=== PATIENT | male | born 1965 | race Caucasian/White ===

== ENCOUNTER 2017-02-18 11:46 | Emergency (ER) | payer SELFPAY ==
[2017-02-18] MEDS ORDERED: methylPREDNISolone 125 MG* 2 ML VIAL IV ONE (12:15)
[2017-02-18] MEDS ORDERED: Famotidine IV* 10 MG/ML 2 ML (20 mg) IV SLOW PU ONE (12:15)
[2017-02-18] MEDS ORDERED: diPHENhydraMINE IV* 50 MG/ML 1 ml VIAL (BENADRYL) IV ONE (12:16)
[2017-02-18] MEDS ORDERED: NS 0.9% 1000 ML* 2,000 ML IV ONE (12:18)
[2017-02-18 12:21] LABS: Hematocrit 49 % (42-52); Hemoglobin 16.4 g/dl (14.0-18.0); Mean Corpuscular HGB Conc 34 g/dl (31-36); Mean Corpuscular Hemoglobin 33 pg (27-31); Mean Corpuscular Volume 97 fL (80-94); Mean Platelet Volume 7 um3 (7.4-10.4); Red Blood Count 5.05 10^6/ul (4.0-5.4); Red Cell Distribution Width 14 % (10.5-15); White Blood Count 9.6 10^3/ul (3.5-10.8)
[2017-02-18 12:31] LABS: BUN/Creatinine Ratio 12.6 (8-20); C Reactive Protein 1.58 mg/L (< 5.00); Calcium 9.2 mg/dL (8.6-10.3); EGFR African American 107.5 (>60); EGFR Non-African American 83.6 (>60); Globulin 2.7 g/dL (2-4); Potassium 3.6 mmol/L (3.5-5.0); Total Bilirubin 0.6 mg/dL (0.2-1.0); Total Protein 6.7 g/dL (6.4-8.9)
[2017-02-18 14:49] VITALS: BP 126/72
--- NOTE | 2017-02-18 16:36 | ED ---
Doretha Epstein Thomas, scribed for Alonzo Moyer MD on 02/18/17 at 1214 . Allergic Reaction/Systemic - HPI Summary HPI Summary: The pt is a 52 y/o M presenting to the ED c/o allergic reaction s/p Yellowjacket sting to his external L ear today at 11:30. The insect flew into his ear and then out, but he denies any stings to his ear canal. He immediately applied an Epi-Pen after being stung. Before the Epi-Pen, he describes his breathing as erratic, but he denies any SOB in the ED. Three years ago, the patient had a severe allergic reaction after an insect sting. The pt additionally c/o diaphoresis, erythema (entire body), tingling sensation ( entire body), hives (most of body), frontal BEST, lip swelling (minor), and throat tightness. The pt denies tongue swelling and SOB. PMHx: previously healthy. PSHx: none. SHx: smoker, works in construction, rare alcohol use. - History of Current Complaint Chief Complaint: EDAllergicReaction Time Seen by Provider: 02/18/17 12:03 Hx Obtained From: Patient Onset/Duration: Sudden Onset, Started minutes ago - 11:30 today, Still Present Timing: Constant Pain Intensity: 1 Pain Scale Used: 0-10 Numeric Location: Diffuse Character: Hives Aggravating Factor(s): Nothing Alleviating Factor(s): Epinephrine - self-administered shortly after stin Associated Signs And Symptoms: Positive: Diaphoresis, Rash - hives over entire body, Throat Tightening, Other: - POS: erythema (entire body), frontal BEST, tingling sensation (entire body), lip swelling (minor); NEG: tongue swelling, SOB. Negative: Difficulty Breathing - Related Hx Possible Reaction To: Insect - yellowjacket Prior Episode Dx as Allergic Reaction to: Same/Other: severe reaction 3 years ago to insect bite - Allergies/Home Medications Allergies/Adverse Reactions: Allergies Allergy/AdvReac Type Severity Reaction Status Date / Time No Known Allergies Allergy Verified 02/18/17 12:25 PMH/Surg Hx/FS Hx/Imm Hx Previously Healthy: Yes Endocrine/Hematology History: Denies: Hx Diabetes Cardiovascular History: Denies: Hx Myocardial Infarction - Surgical History Surgery Procedure, Year, and Place: none Infectious Disease History: No Infectious Disease History: Denies: Traveled Outside the [place] in Last 30 Days - Family History Known Family History: Positive: Other - POS: CA (lung, spinal) - Social History Occupation: Employed Full-time - construction Alcohol Use: Rare Hx Tobacco Use: Yes Smoking Status (MU): Current Every Day Smoker Review of Systems Positive: Skin Diaphoresis Eyes: Negative ENT: Negative Cardiovascular: Negative Positive: Other - POS: throat tightness. Negative: Shortness Of Breath - none in the ED, but "erratic breathing" before application of Epi-Pen Gastrointestinal: Negative Genitourinary: Negative Positive: Other - POS: lip swelling (minor); NEG: tongue swelling Positive: Other - POS: erythema (entire body); hives (most of body) Neurological: Other - POS: tingling sensation (entire body) Positive: Headache - frontal Psychological: Normal All Other Systems Reviewed And Are Negative: Yes Physical Exam - Summary Physical Exam Summary: The patient is well-nourished in no acute distress and in no acute pain. The skin is warm and diaphoretic and skin color reflects adequate perfusion. He is covered in diffuse urticaria on his face, trunk, and extremities. HEENT: The head is normocephalic and atraumatic. The pupils are equal and reactive. There is periorbital edema. There is drainage from his eyes. His conjunctiva are injected. Nares are patent and without drainage. Mouth reveals moist mucous membranes and the throat is without erythema and exudate. The external ears are intact. The ear canals are patent and without drainage. The tympanic membranes are intact. There is no sinosis. There is no angioedema of the lips or tongue. Neck is supple with full range of motion and non-tender. There are no carotid bruits. There is no neck vein distension. There is no stridor. Respiratory: Chest is non-tender. He has occasional expiratory wheezing, but otherwise lungs are clear to auscultation and breath sounds are symmetrical and equal. He is no short of breath. Cardiovascular: Heart is regular rate and rhythm. There is no murmur or rub auscultated. There is no peripheral edema and pulses are symmetrical and equal. There is no pitting edema. Abdomen: The abdomen is soft and non-tender. Musculoskeletal: There is no back pain noted. There is good capillary refill. There is no peripheral edema or calf tenderness elicited. Neurological: Patient is alert and oriented to person, place and time. Psychiatric: The patient has an appropriate affect and does not exhibit any anxiety or depression. Triage Information Reviewed: Yes Vital Signs On Initial Exam: Initial Vitals BP 127/79 02/18/17 11:54 Vital Signs Reviewed: Yes Diagnostics - Vital Signs Vital Signs Temp Pulse Resp BP Pulse Ox 02/18/17 11:59 110 13 92 02/18/17 11:56 109 19 91 02/18/17 11:55 98.9 F 110 17 127/79 92 02/18/17 11:54 127/79 - Laboratory Lab Results: Lab Results 02/18/17 02/18/17 Range/Units 11:56 11:56 WBC 9.6 (3.5-10.8) 10^3/ul RBC 5.05 (4.0-5.4) 10^6/ul Hgb 16.4 (14.0-18.0) g/dl Hct 49 (42-52) % MCV 97 H (80-94) fL MCH 33 H (27-31) pg MCHC 34 (31-36) g/dl RDW 14 (10.5-15) % Plt Count 285 (150-450) 10^3/ul MPV 7 L (7.4-10.4) um3 Neut % (Auto) 54.9 (38-83) % Lymph % (Auto) 38.2 (25-47) % [place] % (Auto) 6.3 (1-9) % Eos % (Auto) 0.3 (0-6) % Baso % (Auto) 0.3 (0-2) % Absolute Neuts (auto) 5.3 (1.5-7.7) 10^3/ul Absolute Lymphs (auto) 3.6 (1.0-4.8) 10^3/ul Absolute Monos (auto) 0.6 (0-0.8) 10^3/ul Absolute Eos (auto) 0 (0-0.6) 10^3/ul Absolute Basos (auto) 0 (0-0.2) 10^3/ul Absolute Nucleated RBC 0.01 10^3/ul Nucleated RBC % 0.1 Sodium 138 (133-145) mmol/L Potassium 3.6 (3.5-5.0) mmol/L Chloride 104 (101-111) mmol/L Carbon Dioxide 26 (22-32) mmol/L Anion Gap 8 (2-11) mmol/L BUN 12 (6-24) mg/dL Creatinine 0.95 (0.67-1.17) mg/dL Est GFR ( Amer) 107.5 (>60) Est GFR (Non-Af Amer) 83.6 (>60) BUN/Creatinine Ratio 12.6 (8-20) Glucose 121 H (70-100) mg/dL Calcium 9.2 (8.6-10.3) mg/dL Magnesium 2.0 (1.9-2.7) mg/dL Total Bilirubin 0.60 (0.2-1.0) mg/dL AST 14 (13-39) U/L ALT 10 (7-52) U/L Alkaline Phosphatase 67 (34-104) U/L Troponin I 0.00 (<0.04) ng/mL C-Reactive Protein 1.58 (< 5.00) mg/L Total Protein 6.7 (6.4-8.9) g/dL Albumin 4.0 (3.2-5.2) g/dL Globulin 2.7 (2-4) g/dL Albumin/Globulin Ratio 1.5 (1-3) Result Diagrams: 02/18/17 11:56 02/18/17 11:56 Lab Statement: Any lab studies that have been ordered have been reviewed, and results considered in the medical decision making process. - EKG 12:48 Cardiac Rate: NL - 72 BPM EKG Interpretation: No STEMI. No V-Tach. Re-Evaluation - Re-Evaluation First Eval Re-Evaluation Time: 12:45 Change: Worse Comment: The patient had a run of V-Tach that was asymptomatic. I ordered an EKG. Second Eval Re-Evaluation Time: 14:22 Comment: The patient is told that we want to monitor his cardiac function, but he states that he cannot afford to stay and his [id number] is ill, so he will leave out AMA. He is competent and understands the risks. Allergic Reaction Course/Dx - Course Assessment/Plan: The pt is a 52 y/o M presenting to the ED c/o allergic reaction s/p Yellowjacket sting to his external L ear today at 11:30. The insect flew into his ear and then out, but he denies any stings to his ear canal. He immediately applied an Epi-Pen after being stung. Before the Epi-Pen, he describes his breathing as erratic, but he denies any SOB in the ED. Three years ago, the patient had a severe allergic reaction after an insect sting. The pt additionally c/o diaphoresis, erythema (entire body), tingling sensation (entire body), hives (most of body), frontal BEST, lip swelling (minor), and throat tightness. The pt denies tongue swelling and SOB. PMHx: previously healthy. PSHx: none. SHx: smoker, works in construction, rare alcohol use. Bloodwork shows MCV 97, MCH 33, MPV 7, Glucose 121. In the ED course he was given IV fluids, Solu-medrol, Benadryl, and Pepcid. At 12:45, the patient had a run of V-Tach that was asymptomatic. I ordered an EKG as a result. EKG reveals no V-Tach, no STEMI at 72 BPM. Re-evaluation at 14:22. The patient is told that we want to monitor his cardiac function, but he states that he cannot afford to stay and his [id number] is ill, so he will leave out AMA. He is competent and understands the risks. He will be given Prednisone, Pepcid, and Benadryl. He is diagnosed with anaphylactic reaction and ventricular tachycardia. He was told to follow up with his family doctor for cardiac monitoring. - Diagnoses Differential Diagnosis/HQI/PQRI: Positive: Anaphylaxis, Other - cardiac dysrhthymia Provider Diagnoses: Anaphylactic reaction, Ventricular tachycardia, Left against medical advice Discharge - Discharge Plan Condition: Fair Disposition: AGAINST MEDICAL ADVICE Prescriptions: Famotidine TAB 40 MG(NF) [Pepcid TAB 40 MG(NF)] 40 mg PO DAILY #30 tab diPHENhydraMINE PO* [Benadryl PO 50 MG CAP*] 50 mg PO Q6H PRN #30 cap PRN Reason: itchiness predniSONE TAB* [Deltasone TAB*] 60 mg PO DAILY #15 tab Patient Education Materials: Anaphylaxis (ED), Tachycardia (ED) Referrals: Darlow,Naren A, MD [Primary Care Provider] - Additional Instructions: Follow up with your family doctor for cardiac monitoring. The documentation as recorded by the Doretha grubbs Thomas accurately reflects the service I personally performed and the decisions made by me, Alonzo Moyer MD.
== END 2017-02-18 14:50 | disposition left against medical advice (07) ==
LOC: ED 11:46
DX: T63.441A Toxic effect of venom of bees, accidental (unintentional), initial encounter (principal); T78.2XXA Anaphylactic shock, unspecified, initial encounter; X58.XXXA Exposure to other specified factors, initial encounter; R00.0 Tachycardia, unspecified; Z53.21 Procedure and treatment not carried out due to patient leaving prior to being seen by health care provider
CPT/HCPCS: 36415; 80053; 83735; 84484; 85025; 86140; 93005; 99283; J1200; J2930

== ENCOUNTER 2018-05-05 11:15 | Emergency (ER) | payer OTHER ==
[2018-05-05] MEDS ORDERED: Albuterol/Ipratropium NEB.SOL* Albuterol 2.5 MG/Ipratropium 0.5 MG 3 ML INH ONE (11:30)
--- NOTE | 2018-05-05 11:37 | ED ---
Respiratory - HPI Summary HPI Summary: 53-year-old male presents with cough for the past 5 days. He admits to sinus congestion. He states he did have fevers when it first began. He denies any nausea vomiting. Does admit to decreased appetite. No chest pain but admits to some shortness of breath. No shortness breath currently. He denies any pain or swelling in his calf muscles. He is a smoker. He states that he had to quit with this illness. He states he has been dx with early COPD. - History of Current Complaint Chief Complaint: EDFluSymptoms Stated Complaint: FLU LIKE SYMPTOMS Time Seen by Provider: 05/05/18 11:22 Pain Intensity: 0 - Allergy/Home Medications Allergies/Adverse Reactions: Allergies Allergy/AdvReac Type Severity Reaction Status Date / Time No Known Allergies Allergy Verified 02/18/17 12:25 PMH/Surg Hx/FS Hx/Imm Hx Endocrine/Hematology History: Denies: Hx Diabetes Cardiovascular History: Denies: Hx Myocardial Infarction Respiratory History: Reports: Hx Chronic Obstructive Pulmonary Disease (COPD) - beginning of Denies: Hx Asthma - Surgical History Surgery Procedure, Year, and Place: none Infectious Disease History: No Infectious Disease History: Denies: Traveled Outside the [place] in Last 30 Days - Family History Known Family History: Positive: Other - POS: CA (lung, spinal) - Social History Alcohol Use: Rare Substance Use Type: Reports: None Hx Tobacco Use: Yes Smoking Status (MU): Current Every Day Smoker Review of Systems Negative: Fever Positive: Nasal Discharge Negative: Chest Pain Positive: Cough. Negative: Shortness Of Breath Negative: Abdominal Pain All Other Systems Reviewed And Are Negative: Yes Physical Exam Triage Information Reviewed: Yes Vital Signs On Initial Exam: Initial Vitals Temp Pulse Resp BP Pulse Ox 98.1 F 95 18 140/76 98 05/05/18 11:18 05/05/18 11:18 05/05/18 11:18 05/05/18 11:18 05/05/18 11:18 Vital Signs Reviewed: Yes Appearance: Positive: Well-Appearing Skin: Positive: Warm, Dry Head/Face: Positive: Normal Head/Face Inspection Eyes: Positive: Normal, EOMI, JOANNE, Conjunctiva Clear ENT: Positive: Normal ENT inspection, Pharynx normal, TMs normal Neck: Positive: Supple, Nontender, No Lymphadenopathy Respiratory/Lung Sounds: Positive: Breath Sounds Present, Decreased Breath Sounds Cardiovascular: Positive: Normal, RRR Abdomen Description: Positive: Nontender, Soft Bowel Sounds: Positive: Present Musculoskeletal: Positive: Normal Neurological: Positive: Normal Psychiatric: Positive: Normal Diagnostics - Vital Signs Vital Signs Temp Pulse Resp BP Pulse Ox 05/05/18 11:18 98.1 F 95 18 140/76 98 - Laboratory Result Diagrams: 05/05/18 11:53 05/05/18 11:53 Lab Statement: Any lab studies that have been ordered have been reviewed, and results considered in the medical decision making process. - Radiology chest Xray Interpretation: No Acute Changes - IMPRESSION: HYPERINFLATION, CONSISTENT WITH COPD. NO ACTIVE CARDIOPULMONARY DISEASE. Radiology Interpretation Completed By: Radiologist Disposition - Course Course Of Treatment: 53-year-old male presents with cough for the past 5 days. He admits to sinus congestion. He states he did have fevers when it first began. He denies any nausea vomiting. Does admit to decreased appetite. No chest pain but admits to some shortness of breath. No shortness breath currently. He denies any pain or swelling in his calf muscles. He is a smoker. He states that he had to quit with this illness. He states he has been dx with early COPD. On exam decreased breath sounds present. chest xray shows hyperinflation. bnp normal. wbc elevated and with smoking history will treat with azithromycin, inhaler, and steriod. patient understand and agrees with plan. - Differential Dx - Cardiopulmonary Differential Diagnoses - Cardiopulmonary: Bronchitis, Influenza, Lower Resp Infection - Diagnoses Provider Diagnoses: Bronchitis Discharge - Sign-Out/Discharge Documenting (check all that apply): Patient Departure - Discharge Plan Condition: Good Disposition: HOME Prescriptions: Albuterol HFA INHALER* [Ventolin HFA Inhaler*] 1 puff INH Q6H PRN #1 mdi PRN Reason: Cough Azithromycin TAB* [Zithromax TAB (Z-TRAE) 250 mg #6 tabs] 250 mg PO DAILY #4 tab predniSONE TAB* [Deltasone TAB*] 50 mg PO DAILY #4 tab Patient Education Materials: Acute Bronchitis (ED) Referrals: [facility] [facility] [Outside] Additional Instructions: Use inhaler up to two puffs every 4 hours for cough and wheezing Take steroid once a day for 4 more days starting tomorrow Take antibiotic once daily starting tomorrow for 4 days Take Tylenol or ibuprofen for pain every 6 hours est care with primary Return to ED if develop severe shortness of breath, worsening chest pain, or any new or worsening symptoms - Billing Disposition and Condition Condition: GOOD Disposition: Home
[2018-05-05] MEDS ORDERED: predniSONE TAB* 20 MG PO ONE (11:52)
--- NOTE | 2018-05-05 11:52 | RAD ---
HISTORY: cough COMPARISONS: October 13, 2004 VIEWS: 4: Frontal dual-energy and lateral views of the chest. FINDINGS: CARDIOMEDIASTINAL SILHOUETTE: The cardiomediastinal silhouette is normal. JASON: The jason are normal. PLEURA: The costophrenic angles are sharp. No pleural abnormalities are noted. LUNG PARENCHYMA: There is hyperinflation with flattening of the diaphragm and expansion of the AP diameter of the chest. ABDOMEN: The upper abdomen is clear. There is no subphrenic gas. BONES AND SOFT TISSUES: Degenerative changes are noted along the spine. OTHER: None. IMPRESSION: HYPERINFLATION, CONSISTENT WITH COPD. NO ACTIVE CARDIOPULMONARY DISEASE.
[2018-05-05 11:59] LABS: ABS Basophils 0.1 10^3/ul (0-0.2); ABS Eosinophils 0 10^3/ul (0-0.6); ABS Lymphocytes 1.1 10^3/ul (1.0-4.8); ABS Monocytes 1.4 10^3/ul (0-0.8); ABS Neutrophils 13.6 10^3/ul (1.5-7.7); ABS Nucleated RBC 0 10^3/ul; Eosinophil % 0 % (0-6); Hematocrit 46 % (42-52); Hemoglobin 16.1 g/dl (14.0-18.0); Lymphocyte % 6.8 % (25-47); Mean Corpuscular HGB Conc 35 g/dl (31-36); Mean Corpuscular Hemoglobin 33 pg (27-31); Mean Corpuscular Volume 94 fL (80-94); Mean Platelet Volume 7.1 um3 (7.4-10.4); Nucleated Red Blood Cells % 0.1; Platelet Count 187 10^3/ul (150-450); Red Cell Distribution Width 14 % (10.5-15); White Blood Count 16.2 10^3/ul (3.5-10.8)
[2018-05-05 12:24] LABS: EGFR Non-African American 107.7 (>60)
[2018-05-05] MEDS ORDERED: Azithromycin TAB* 250 MG PO ONE (12:39)
[2018-05-05 13:02] VITALS: BP 119/79
== END 2018-05-05 13:03 | disposition home or self-care (01) ==
LOC: ED 11:15
DX: J40 Bronchitis, not specified as acute or chronic (principal); F17.200 Nicotine dependence, unspecified, uncomplicated; J44.9 Chronic obstructive pulmonary disease, unspecified
CPT/HCPCS: 36415; 71046; 80053; 83880; 85025; 99282; A9270-GY; J7512